=== PATIENT | female | born 1960 | race Caucasian/White ===

== ENCOUNTER 2018-02-09 14:49 | Emergency (ER) | payer MEDICAID ==
[2018-02-09 14:55] VITALS: BP 116/80
--- NOTE | 2018-02-09 15:16 | EDPHY ---
H & P Time Seen by Provider: 02/09/18 15:05 HPI/ROS: HPI Seizure. History of seizures. 57-year-old female by ambulance. This patient is currently homeless. She has a known seizure disorder. She has a history of noncompliance with her Keppra. [place] was [place] a neighborhood [place] when she had a witnessed seizure. EMS was called to the scene. She tells me that she currently has her Keppra stored at a storage locker. [facility]. She states that she can get access to the storage locker to get her medicine but needs to take the bus to get there. Currently she denies any complaints. She tells me that she takes 500 mg of Keppra twice daily. She reports that she last took her medication yesterday. ROS: Constitutional: No fever, no chills. As above. Eyes: No discharge. No changes in vision. ENT: No sore throat. No nasal congestion or rhinorrhea. Respiratory: No cough. No shortness of breath. Cardiac: No chest pain, no palpitations. Gastrointestinal: No abdominal pain, no vomiting, no diarrhea. Genitourinary: No hematuria. No dysuria or increased frequency with urination. Musculoskeletal: No back pain. No neck pain. No myalgias or arthralgias. Skin: No rashes. Neurological: No headache. No focal weakness or altered sensation. Past medical history: Seizure history. As above. Social history: Homeless. Denies alcohol. No IV drugs or street drugs. Smokes cigarettes occasionally. Physical Exam: General Appearance: Alert, no distress. Somewhat disheveled. This patient is responding to questions appropriately and in full sentences. This patient appears well-hydrated and well-nourished. Eyes: Pupils equal and round and reactive to light, no pallor or injection. No lid edema, erythema or injection. No nystagmus. No photophobia. ENT, Mouth: Mucous membranes are moist. The pharyngeal tissues are unremarkable. No edema or swelling. No asymmetry suggestive of abscess. No erythema or exudates. No tongue lacerations or abrasions. Respiratory: There are no retractions, lungs are clear to auscultation with good air movement bilaterally. Cardiovascular: Regular rate and rhythm. No murmur. Gastrointestinal: Abdomen is soft and nontender, no masses, bowel sounds normal. No focal tenderness at McBurney's point. No Talley sign. Neurological: Motor sensory function is grossly intact. Cranial nerves are normal. Gait is normal. Skin: Warm and dry, no rashes. Musculoskeletal: Neck is supple and nontender. No pain on flexion of her neck. Extremities are symmetrical. All joints range without pain or impingement. Psychiatric: No agitation. No depression. Database: EKG: Imaging: Procedures: Emergency department course: Triage vital signs reviewed. She is mildly tachycardic. Vital signs are otherwise normal. She is afebrile. She will be given a 1000 mg of oral Keppra in the emergency department. He feels comfortable being discharged. She tells me that she will be able to go get her Keppra which is noted above history to word at a storage locker in [facility]. She tells me that she does not need any new medications. She has no other complaints. Follow-up and return to emergency department precautions reviewed with her. All of her questions were answered. She was discharged from the emergency department in good condition. Differential Diagnosis: The differential diagnosis on this patient includes but is not limited to history of seizure disorder, breakthrough seizure. Hyponatremia, hypoglycemia, intracranial hemorrhage, meningitis, encephalitis unlikely. This represents a partial list of diagnoses considered. These considerations are based on history , physical exam, past history, reassessment and diagnostic testing. Smoking Status: Heavy smoker Constitutional: Initial Vital Signs Temperature (C) 36.6 C 02/09/18 14:49 Heart Rate 102 H 02/09/18 14:49 Respiratory Rate 16 02/09/18 14:49 Blood Pressure 116/80 02/09/18 14:49 O2 Sat (%) 99 02/09/18 14:49 O2 Delivery Mode Room Air Allergies/Adverse Reactions: pollen extracts Allergy (Verified 02/09/18 14:53) Home Medications: Medication Instructions Recorded Ibuprofen 02/09/18 Departure - Departure Disposition: Home, Routine, Self-Care Clinical Impression: Seizure disorder, Breakthrough seizure Condition: Good Instructions: Recurrent Seizures in Adults (ED) Additional Instructions: Read and follow provided instructions. Follow-up with your primary care physician at [facility]. in 2-3 days for re-evaluation as discussed. Take your seizure medication as prescribed. 500 mg twice daily. Return to the emergency department for seizure or other serious concerns. Referrals: Patient,NotPresent [Primary Care Provider] - As per Instructions
[2018-02-09] MEDS ORDERED: levETIRAcetam 500 MG TAB PO ONE (15:18)
--- NOTE | 2018-02-09 15:36 | ASMTLACE ---
LACE Length of stay for Answers: Less than 1 day current admission Acuity / Level of Answers: No Care: Did the patient have an inpatient admission? # of Emergency department Answers: 12+ visits in the last 6 months Social determinants Answers: History of substance abuse (ETOH, street drugs, prescription drugs, etc.) Homelessness (street, prison) Mental health diagnosis (anxiety, depression, pers onality disorders, etc.) Score: 15 Date Signed: 02/09/2018 03:35 PM Electronically Signed By:Alvin Xiong LCSW
--- NOTE | 2018-02-09 15:59 | ASMTCMCOM ---
CM Note CM Note Notes: Pt seen by request of ED RN Katya. Pt is well known to [facility] and CM. PT account is duplicate as pt did not provide accurate information upon admission. Pt has been in [facility] 20 times in the last 6 months. She uses ETOH daily but stated that seizures are not related to ETOH. [facility] closed for the holiday. Pt advised to follow up with [facility]. She stated she has not been to see PCP for 4 months. Prior CM notes indicate that appointments were made in November 2017. Pt stated that she is homeless and has not had her medications because they are locked in her storage unit and she lost the haji. Pt stated that upon discharge she will go to the storage facility and request help for entry. Case management has provided resources in the past however pt has been non-compliant with medications and follow up care. Pt requested a lis pass and was angry when pass was not available. CM to continue to follow. Date Signed: 02/09/2018 03:59 PM Electronically Signed By:Alvin Xiong LCSW
== END 2018-02-09 15:45 | disposition home or self-care (01) ==
DX: G40.909 Epilepsy, unspecified, not intractable, without status epilepticus (principal); Z59.0 Homelessness; Z79.899 Other long term (current) drug therapy

== ENCOUNTER 2018-02-21 18:21 | Emergency (ER) | payer MEDICAID ==
[2018-02-21 18:27] VITALS: BP 122/84
--- NOTE | 2018-02-21 18:27 | EDPHY ---
H & P Time Seen by Provider: 02/21/18 18:25 HPI/ROS: CHIEF COMPLAINT: Intoxication HISTORY OF PRESENT ILLNESS: Patient is a 57-year-old homeless female was found intoxicated by police. When they took her into custody she began complaining of chest pain. EMS was called. They had a normal EKG the scene. Here in the ER she denies chest pain but tells me she was lying down because she had a seizure. She tells me she has seizures about once per month. No signs of trauma. She has no complain of pain or injury. No vomiting. No incontinence. She denies shortness of breath. No headache. She states that she has been taking her anti seizure medication but cannot tell me what it is. According to the record is Gen. She has been drinking as well. Severity: Moderate Modifying factors: None REVIEW OF SYSTEMS: Unable to assess secondary to condition EXAM: GENERAL: Disheveled, no acute distress. HEAD: Atraumatic, normocephalic. EYES: Pupils equal round and reactive to light, extraocular movements intact, sclera anicteric, conjunctiva are normal. ENT: TMs normal, nares patent, oropharynx clear without exudates. Moist mucous membranes. NECK: Normal range of motion, supple without lymphadenopathy or JVD. LUNGS: Breath sounds clear to auscultation bilaterally and equal. No wheezes rales or rhonchi. HEART: Regular rate and rhythm without murmurs, rubs or gallops. ABDOMEN: Soft, nontender, normoactive bowel sounds. No guarding, no rebound. No masses appreciated. BACK: No CVA tenderness, no spinal tenderness, step-offs or deformities EXTREMITIES: Normal range of motion, no pitting or edema. No clubbing or cyanosis. NEUROLOGICAL: Sleeping but arousable, Cranial nerves II through XII grossly intact. Slightly slurred speech, 5/5 strength, normal movement in all extremities, normal sensation, normal reflexes PSYCH: Normal mood, normal affect. SKIN: Warm, dry, normal turgor, no visible rashes or lesions. Source: Patient, EMS, Old records Exam Limitations: Intoxication - Medical/Surgical History Hx Asthma: No Hx Chronic Respiratory Disease: No Hx Diabetes: No Hx Cardiac Disease: No Hx Renal Disease: No Hx Cirrhosis: No Hx Alcoholism: Yes Hx HIV/AIDS: No Hx Splenectomy or Spleen Trauma: No Other PMH: Alcoholism, seizures - Family History Significant Family History: No pertinent family hx - Social History Smoking Status: Heavy smoker Alcohol Use: Heavy Constitutional: Initial Vital Signs Temperature (C) 36.7 C 02/21/18 18:24 Heart Rate 70 02/21/18 18:24 Respiratory Rate 16 02/21/18 18:24 Blood Pressure 122/84 H 02/21/18 18:24 O2 Sat (%) 97 02/21/18 18:24 O2 Delivery Mode Room Air Allergies/Adverse Reactions: pollen extracts Allergy (Verified 02/21/18 18:24) Home Medications: Medication Instructions Recorded Ibuprofen 02/09/18 Medical Decision Making ED Course/Re-evaluation: The patient's breath last alcohols 336. I suspect she has primary simply intoxicated I do not think she had a seizure with this alcohol level. Will continue to observe until she can ambulate. She is currently not complaining of chest pain or any other medical symptoms. 6:50 p.m. we discussed options with the patient. She is trying to get to a care home tonight before closes. She does not wish to stay here any longer. She tells me she can ambulate without difficulty. We will give her a road test and if she succeeds discharge her at this time. She has no medical complaints currently. Differential Diagnosis: Partial list of the Differential diagnosis considered include but were not limited to; intoxication, seizure and although unlikely based on the history and physical exam, I also considered artery disease, trauma, infection. Departure - Departure Disposition: Home, Routine, Self-Care Clinical Impression: Alcoholic intoxication Qualifiers: Complication of substance-induced condition: uncomplicated Qualified Code(s): F10.920 - Alcohol use, unspecified with intoxication, uncomplicated Condition: Fair Instructions: Alcohol Intoxication (ED) Referrals: Patient,NotPresent [Unknown] - As per Instructions [facility],. [Clinic] - As per Instructions
[2018-02-21] MEDS ORDERED: CHLORDIAZEPOXIDE 25MG PREPK#6 BTL TAKEHOME ONE (23:10)
== END 2018-02-21 18:58 | disposition home or self-care (01) ==
LOC: EDUNIT#
DX: F10.129 Alcohol abuse with intoxication, unspecified (principal); Y90.8 Blood alcohol level of 240 mg/100 ml or more; Z59.0 Homelessness